=== PATIENT | female | born 1995 | race Caucasian/White ===

== ENCOUNTER 2017-03-02 08:00 | Outpatient (CLI) | payer MEDICAID, OTHER ==
[2017-03-02 13:29] LABS: BASOPHILS % (AUTO) 0.6 %; EOSINOPHILS # (AUTO) 0.1 10^3/uL (0.0-0.7); EOSINOPHILS % (AUTO) 2.8 %; HCT - HEMATOCRIT 37.1 % (37.0-47.0); HGB - HEMOGLOBIN 12.2 g/dL (12.0-16.0); LYMPHOCYTES # (AUTO) 2.1 10^3/uL (1.5-3.5); LYMPHOCYTES % (AUTO) 44.3 %; MEAN CORPUSCULAR HEMOGLOBIN 27.8 pg (27.0-31.0); MEAN CORPUSCULAR HGB CONC 32.8 g/dL (32.0-36.0); MEAN CORPUSCULAR VOLUME 84.7 fL (81.0-99.0); MEAN PLATELET VOLUME 7.7 fL (7.9-10.8); MONOCYTES # (AUTO) 0.3 10^3/uL (0.0-1.0); MONOCYTES % (AUTO) 6.7 %; NEUTROPHILS # (AUTO) 2.1 10^3/uL (1.5-6.6); NEUTROPHILS % (AUTO) 45.6 %; RED BLOOD COUNT 4.38 10^6/uL (4.20-5.40); RED CELL DISTRIBUTION WIDTH 14.1 % (12.0-15.0); UNCORRECTED WHITE BLOOD COUNT 4.7 x10^3/uL; WHITE BLOOD COUNT 4.7 x10^3/uL (4.8-10.8)
[2017-03-02 13:31] LABS: CALCIUM 9.2 mg/dL (8.5-10.3); CARBON DIOXIDE - CO2 27 mmol/L (21-32); CHLORIDE 103 mmol/L (101-111); GLUCOSE 93 mg/dL (70-100); POTASSIUM 3.8 mmol/L (3.5-5.0); SODIUM 138 mmol/L (135-145)
[2017-03-02 13:40] LABS: ALBUMIN/GLOBULIN RATIO 0.9 (1.0-2.2); BILIRUBIN,TOTAL 0.7 mg/dL (0.2-1.0); BUN - BLOOD UREA NITROGEN 13 mg/dL (6-20); CHOLESTEROL 207 mg/dL; CREATININE 0.9 mg/dL (0.4-1.0); GFR - MDRD 80 (>89); HDL CHOLESTEROL 41 mg/dL; IRON 63 ug/dL (28-170); LDL/HDL RATIO 2.8 (<4.4); TOTAL IRON BINDING CAPACITY 367 ug/dL (250-450); TRANSFERRIN 262 mg/dL (192-382); TRIGLYCERIDES 250 mg/dL; VLDL CHOLESTEROL 50 mg/dL
[2017-03-02 13:42] LABS: FERRITIN 28.2 ng/mL (11.0-306.8)
[2017-03-02 13:56] LABS: THYROID STIMULATING HORMONE 1.48 uIU/mL (0.34-5.60)
== END 2017-03-02 08:01 | disposition home or self-care (01) ==
LOC: LAB.N 08:00
PROVIDERS: ATTEND Physician Assistant
DX: R53.83 Other fatigue (principal)
CPT/HCPCS: 36415; 80053; 80061; 82728; 83540; 84443; 84466; 84703; 85025

== ENCOUNTER 2017-12-20 11:37 | Outpatient (CLI) | payer MEDICAID ==
[2017-12-20 11:58] LABS: MEAN CORPUSCULAR HEMOGLOBIN 28.4 pg (27.0-31.0); MEAN CORPUSCULAR VOLUME 83.6 fL (81.0-99.0); MEAN PLATELET VOLUME 6.9 fL (7.9-10.8); RED BLOOD COUNT 4.23 10^6/uL (4.20-5.40); WHITE BLOOD COUNT 5.1 x10^3/uL (4.8-10.8)
[2017-12-20 13:10] LABS: THYROID STIMULATING HORMONE 1.93 uIU/mL (0.34-5.60)
[2017-12-20 13:12] LABS: FREE T4 (FREE THYROXINE) 0.91 ng/dL (0.58-1.64)
== END 2017-12-20 11:38 | disposition home or self-care (01) ==
LOC: LAB 11:37
PROVIDERS: ATTEND Nurse Practitioner Obstetrics & Gynecology
DX: N92.0 Excessive and frequent menstruation with regular cycle (principal)
CPT/HCPCS: 36415; 84439; 84443; 84481

== ENCOUNTER 2017-12-23 17:07 | Outpatient (CLI) | payer MEDICAID ==
--- NOTE | 2017-12-24 14:21 | Ultrasound Report ---
EXAM: PELVIC ULTRASOUND EXAM DATE: 12/23/2017 06:16 PM. CLINICAL HISTORY: EXCESSIVE AND FREQUENT MENSTRUATION WITH REGULAR. COMPARISON: None. TECHNIQUE: Realtime transabdominal pelvic scan performed to identify the uterus and adnexa and as an overview of other pelvic structures, followed by transvaginal scan to provide greater detail of the u terus and adnexa, with static image documentation. FINDINGS: Uterus: 8.3 x 3.2 x 5.0 cm, volume 69.4 cc. Anteverted position. Masses: None. Endometrium: 12.4 mm. Irregular and thickened. Suggestion of a hypoechoic mass with flow invading the endometrium measuring 3.4 x 1.8 x 2.5 cm. Cervix: Unremarkable. Right Ovary: 4.6 x 3.2 x 3.1 cm, volume 23.8 cc. Normal echotexture and blood flow. Left Ovary: 3.9 x 2.0 x 2.2 cm, volume 8.9 cc. Normal echotexture and blood flow. Free Fluid: None. Other: None. IMPRESSION: Irregular thickened endometrial stripe with suggestion of a mass invading the endometrium . Recommend pelvic MRI without and with IV contrast fur further evaluation. [facility] Referring Provider Line: [phone] SITE ID: [id number]
== END 2017-12-23 17:08 | disposition home or self-care (01) ==
LOC: DI 17:07
PROVIDERS: ATTEND Nurse Practitioner Obstetrics & Gynecology
DX: N92.0 Excessive and frequent menstruation with regular cycle (principal)
CPT/HCPCS: 76830; 76856

== ENCOUNTER 2018-01-08 11:57 | Emergency (ER) | payer MEDICAID ==
[2018-01-08 13:53] LABS: BASOPHILS % (AUTO) 0.2 %; EOSINOPHILS # (AUTO) 0.1 10^3/uL (0.0-0.7); HGB - HEMOGLOBIN 12.6 g/dL (12.0-16.0); LYMPHOCYTES # (AUTO) 1.5 10^3/uL (1.5-3.5); LYMPHOCYTES % (AUTO) 21.7 %; MEAN CORPUSCULAR HEMOGLOBIN 28.3 pg (27.0-31.0); MEAN CORPUSCULAR HGB CONC 33.4 g/dL (32.0-36.0); MEAN CORPUSCULAR VOLUME 84.9 fL (81.0-99.0); MEAN PLATELET VOLUME 6.9 fL (7.9-10.8); MONOCYTES # (AUTO) 0.3 10^3/uL (0.0-1.0); MONOCYTES % (AUTO) 3.7 %; NEUTROPHILS # (AUTO) 5.2 10^3/uL (1.5-6.6); NEUTROPHILS % (AUTO) 73.4 %; PLT - PLATELET COUNT 357 10^3/uL (130-450); RED BLOOD COUNT 4.44 10^6/uL (4.20-5.40); RED CELL DISTRIBUTION WIDTH 14.9 % (12.0-15.0)
[2018-01-08 14:06] LABS: ALBUMIN 3.7 g/dL (3.2-5.5); ALBUMIN/GLOBULIN RATIO 0.8 (1.0-2.2); BILIRUBIN,TOTAL 0.8 mg/dL (0.2-1.0); CALCIUM 8.6 mg/dL (8.5-10.3); CREATININE 0.9 mg/dL (0.4-1.0); TOTAL PROTEIN 8.1 g/dL (6.7-8.2)
[2018-01-08 14:13] LABS: HCG UR QUAL NEGATIVE
[2018-01-08] MEDS ORDERED: KETOROLAC 60 MG/2 ML VIAL IM STA (14:29)
--- NOTE | 2018-01-08 14:33 | ED Physician Documentation ---
PD HPI FEMALE - Stated complaint Stated Complaint: ABD PX - Chief complaint Chief Complaint: Abd Pain - History obtained from History obtained from: Patient, Family - History of Present Illness Timing - onset: How many days ago (3) Timing - duration: Days (3) Timing - details: Gradual onset, Still present, Waxing and waning Associated symptoms: Pelvic pain, Vaginal bleeding Contributing factors: Other (has had continuous bleeding for 60 days.) Similar symptoms before: No diagnosis, Has not had sx before Recently seen: Clinic - Additional information Additional information: 22 y/o female with painful menses since age 16 has had vaginal bleeding for the past 2 months. She has had an ultrasound showing a mass in the endometrium and she is scheduled for an MRI. Over the past 3 days she has had a marked increase in her pain. Review of Systems Constitutional: denies: Fever, Chills Eyes: denies: Loss of vision, Decreased vision, Photophobia Ears: denies: Ear pain Nose: denies: Rhinorrhea / runny nose, Congestion Throat: denies: Sore throat Cardiac: denies: Chest pain / pressure, Palpitations Respiratory: denies: Dyspnea, Cough GI: reports: Nausea, Vomiting. denies: Abdominal Pain : reports: Vaginal bleeding, Irregular menses. denies: Dysuria, Frequency, Hesitancy, Discharge Skin: denies: Rash, Laceration (s) Musculoskeletal: denies: Neck pain, Back pain, Extremity pain Neurologic: denies: Generalized weakness, Focal weakness, Numbness PD PAST MEDICAL HISTORY - Past Medical History Past Medical History: Yes Cardiovascular: None Respiratory: None Neuro: None : Other Musculoskeletal: Chronic back pain Other Past Medical History: Stage 3 KD - Past Surgical History Past Surgical History: No - Present Medications Home Medications: Ambulatory Orders Medication Instructions Recorded Confirmed Citalopram [CeleXA] 01/08/18 HYDROcod/ACETAM 5/325 [[place] 5/325] 1 - 2 ea PO Q6H PRN #15 tablet 01/08/18 Progesterone,Micronized 100 mg PO DAILY 01/08/18 01/08/18 [Progesterone] - Allergies Allergies/Adverse Reactions: Allergies Allergy/AdvReac Type Severity Reaction Status Date / Time No Known Drug Allergies Allergy Verified 03/14/16 14:50 - Social History Does the pt smoke?: No Smoking Status: Never smoker Does the pt drink ETOH?: No Does the pt have substance abuse?: Yes Substance Use and Type: Marijuana - Immunizations Immunizations are current?: Yes PD ED PE NORMAL - Vitals Vital signs reviewed: Yes (hypertension) - General General: Alert and oriented X 3, No acute distress, Well developed/nourished - HEENT HEENT: Atraumatic, PERRL, EOMI - Neck Neck: Supple, no meningeal sign, No bony TTP - Cardiac Cardiac: RRR, No murmur - Respiratory Respiratory: No respiratory distress, Clear bilaterally - Abdomen Abdomen: Soft, Other (suprapubic pain to palpation. ) - Back Back: No CVA TTP, No spinal TTP - Derm Derm: Normal color, Warm and dry, No rash - Extremities Extremities: No deformity, No edema - Neuro Neuro: Alert and oriented X 3, No motor deficit, No sensory deficit, Normal speech Eye Opening: Spontaneous Motor: Obeys Commands Verbal: Oriented GCS Score: 15 - Psych Psych: Normal mood, Normal affect Results - Vitals Vitals: Vital Signs - 24 hr 01/08/18 01/08/18 12:14 15:55 Temperature 36.3 C L 36.4 C L Heart Rate 85 78 Respiratory 16 16 Rate Blood Pressure 130/99 H 119/78 O2 Saturation 99 100 Oxygen O2 Source Room air - Labs Labs: Laboratory Tests 01/08/18 01/08/18 01/08/18 13:50 13:50 13:50 WBC 7.0 RBC 4.44 Hgb 12.6 Hct 37.7 MCV 84.9 MCH 28.3 MCHC 33.4 RDW 14.9 Plt Count 357 MPV 6.9 L Neut # 5.2 Lymph # 1.5 Gem # 0.3 Eos # 0.1 Baso # 0.0 Absolute Nucleated RBC 0.00 Nucleated RBC % 0.0 Sodium 136 Potassium 4.0 Chloride 103 Carbon Dioxide 25 Anion Gap 8.0 BUN 8 Creatinine 0.9 Estimated GFR (MDRD) 79 L Glucose 86 Calcium 8.6 Total Bilirubin 0.8 AST 27 ALT 23 Alkaline Phosphatase 58 Total Protein 8.1 Albumin 3.7 Globulin 4.4 H Albumin/Globulin Ratio 0.8 L Lipase 19 L Urine Color Urine Clarity Urine pH Ur Specific [place] Urine Protein Urine Glucose (UA) Urine Ketones Urine Occult Blood Urine Nitrite Urine Bilirubin Urine Urobilinogen Ur Leukocyte Esterase Ur Microscopic Review Urine Culture Comments Urine HCG, Qual Blood Type B POSITIVE 01/08/18 01/08/18 13:50 13:50 WBC RBC Hgb Hct MCV MCH MCHC RDW Plt Count MPV Neut # Lymph # Gem # Eos # Baso # Absolute Nucleated RBC Nucleated RBC % Sodium Potassium Chloride Carbon Dioxide Anion Gap BUN Creatinine Estimated GFR (MDRD) Glucose Calcium Total Bilirubin AST ALT Alkaline Phosphatase Total Protein Albumin Globulin Albumin/Globulin Ratio Lipase Urine Color YELLOW Urine Clarity CLEAR Urine pH 6.5 Ur Specific [place] 1.020 1.025 Urine Protein NEGATIVE Urine Glucose (UA) NEGATIVE Urine Ketones NEGATIVE Urine Occult Blood TRACE-INTA Urine Nitrite NEGATIVE Urine Bilirubin NEGATIVE Urine Urobilinogen 0.2 (NORMAL) Ur Leukocyte Esterase NEGATIVE Ur Microscopic Review NOT INDICATED Urine Culture Comments NOT INDICATED Urine HCG, Qual NEGATIVE Blood Type PD MEDICAL DECISION MAKING - ED course Complexity details: reviewed old records, reviewed results, re-evaluated patient , considered differential, d/w patient, d/w family ED course: 22-year-old female with a long history of menstrual pain has developed excessive vaginal bleeding for the past 60 days and she does have a presumed endometrial mass that is to be further investigated with MRI. Today she is having a pain crisis and her bleeding is controlled and her blood counts were normal. She is administered ketorolac without much improvement her pain is subsequently administered hydrocodone. I discussed with her her follow-up with [facility] and possibility of endometriosis and at this point we are offering her pain control. I did not feel that further imaging procedures would be beneficial today. Departure - Departure Disposition: 01 Home, Self Care Clinical Impression: Pelvic pain Condition: Stable Instructions: ED Pelvic Pain [facility] Follow-Up: Frank Deras PA-C [Primary Care Provider] - [facility] [Provider Group] Prescriptions: HYDROcod/ACETAM 5/325 [[place] 5/325] 1 - 2 ea PO Q6H PRN #15 tablet PRN Reason: Pain
[2018-01-08 15:37] LABS: BILIRUBIN,URINE NEGATIVE (NEGATIVE); GLUCOSE, URINE (UA) NEGATIVE (NEGATIVE); KETONES,URINE (UA) NEGATIVE (NEGATIVE); LEUKOCYTE ESTERASE, URINE NEGATIVE (NEGATIVE); NITRITE,URINE NEGATIVE (NEGATIVE); OCCULT BLOOD,URINE TRACE-INTA (NEGATIVE); PH,URINE 6.5 PH (5.0-7.5); PROTEIN,URINE NEGATIVE (NEGATIVE); UROBILINOGEN,URINE 0.2 (NORMAL) E.U./dL (NORMAL)
[2018-01-08 15:38] LABS: CLARITY,URINE CLEAR (CLEAR)
[2018-01-08] MEDS ORDERED: HYDROcod/ACETAM 5/325 MG TABLET PO STA (17:08)
[2018-01-08 17:28] VITALS: BP 138/59
== END 2018-01-08 17:28 | disposition home or self-care (01) ==
LOC: ED 11:57
DX: R10.2 Pelvic and perineal pain (principal)
CPT/HCPCS: 36415; 80053; 81003; 81025; 83690; 85025; 86900; 86901; 96372; 99283; A9270; 81001; 87086

== ENCOUNTER 2019-01-10 01:27 | Outpatient (CLI) | payer MEDICAID | END 2019-01-10 23:59 | disposition home or self-care (01) | LOC: LAB.R 01:27 | PROVIDERS: ATTEND Registered Nurse | DX: N92.1 Excessive and frequent menstruation with irregular cycle (principal) | CPT/HCPCS: 36415; 81599; 82627; 82947; 83001; 83002; 83036; 84436; 84439; 84443; 85025; 87480; 87491; 87510; 87591; 87660 ==

== ENCOUNTER 2019-01-10 13:17 | Outpatient (CLI) | payer MEDICAID ==
[2019-01-10 18:56] LABS: BASOPHILS % (AUTO) 0.4 %; EOSINOPHILS # (AUTO) 0.2 10^3/uL (0.0-0.7); EOSINOPHILS % (AUTO) 3.3 %; HGB - HEMOGLOBIN 12.1 g/dL (12.0-16.0); LYMPHOCYTES # (AUTO) 1.7 10^3/uL (1.5-3.5); LYMPHOCYTES % (AUTO) 36.5 %; MEAN CORPUSCULAR HEMOGLOBIN 28.6 pg (27.0-31.0); MEAN CORPUSCULAR HGB CONC 32.8 g/dL (32.0-36.0); MEAN CORPUSCULAR VOLUME 87.2 fL (81.0-99.0); MEAN PLATELET VOLUME 8.2 fL (7.9-10.8); MONOCYTES # (AUTO) 0.2 10^3/uL (0.0-1.0); MONOCYTES % (AUTO) 4.4 %; NEUTROPHILS # (AUTO) 2.5 10^3/uL (1.5-6.6); NEUTROPHILS % (AUTO) 55.4 %; PLT - PLATELET COUNT 317 10^3/uL (130-450); RED BLOOD COUNT 4.24 10^6/uL (4.20-5.40); RED CELL DISTRIBUTION WIDTH 14.5 % (12.0-15.0); WHITE BLOOD COUNT 4.5 x10^3/uL (4.8-10.8)
[2019-01-10 19:25] LABS: T4 (THYROXINE) 8.62 ug/dL (6.09-12.23)
[2019-01-10 19:27] LABS: HB2 TOTAL 13.1 g/dL; HEMOGLOBIN A1C 0.46 g/dL; HEMOGLOBIN A1C % 5.4 % (4.6-6.2)
[2019-01-10 19:29] LABS: THYROID STIMULATING HORMONE 0.82 uIU/mL (0.34-5.60)
[2019-01-10 19:34] LABS: FREE T4 (FREE THYROXINE) 0.91 ng/dL (0.58-1.64)
[2019-01-10 19:57] LABS: FOLLICLE STIMULATING HORMONE 3.22 mIU/mL
[2019-01-10 19:58] LABS: LUTEINIZING HORMONE 14.2 mIU/mL
== END 2019-01-10 23:59 | disposition home or self-care (01) ==
LOC: LAB.N 13:17
PROVIDERS: ATTEND Registered Nurse
DX: N92.1 Excessive and frequent menstruation with irregular cycle (principal)
CPT/HCPCS: 36415; 81599; 82627; 82947; 83001; 83002; 83036; 84436; 84439; 84443; 85025

== ENCOUNTER 2019-02-01 14:55 | Outpatient (CLI) | payer MEDICAID ==
--- NOTE | 2019-02-01 21:46 | Ultrasound Report ---
Reason: METRORRHAGIA Procedure Date: 02/01/2019 Accession Number: [id number] / [id number] Procedure: US - Pelvic w/Transvaginal CPT Code: FULL RESULT: EXAM: PELVIC ULTRASOUND EXAM DATE: 02/01/2019 03:53 PM. CLINICAL HISTORY: METRORRHAGIA. COMPARISON: None. TECHNIQUE: Realtime transabdominal pelvic scan performed to identify the uterus and adnexa and as an overview of other pelvic structures, followed by transvaginal scan to provide greater detail of the uterus and adnexa, with static image documentation. FINDINGS: Uterus: 8.8 x 3.7 x 4.6 cm, volume 78 cc. Anteverted position. Normal overall size and echotexture. Masses: None. Endometrium: 2 mm. No focal endometrial abnormalities. Cervix: Unremarkable. Right Ovary: 3.4 x 2.4 x 3.4 cm, volume 14.5 cc. Normal echotexture and blood flow. Left Ovary: 3.4 x 1.9 x 2.2 cm, volume 7.4 cc. Normal echotexture and blood flow. Free Fluid: None. Other: None. IMPRESSION: No acute sonographic abnormalities. [facility]
== END 2019-02-01 14:56 | disposition home or self-care (01) ==
LOC: DI 14:55
PROVIDERS: ATTEND Registered Nurse
DX: N92.1 Excessive and frequent menstruation with irregular cycle (principal)
CPT/HCPCS: 76830; 76856

== ENCOUNTER 2019-02-08 10:53 | Outpatient (CLI) | payer MEDICAID ==
--- NOTE | 2019-02-08 14:32 | XRAY Report ---
Reason: KNEE PAIN Procedure Date: 02/08/2019 Accession Number: [id number] / [id number] Procedure: WCP - Knee 3 View LT CPT Code: FULL RESULT: EXAM: LEFT KNEE RADIOGRAPHY EXAM DATE: 02/08/2019 11:29 AM. CLINICAL HISTORY: Knee pain. COMPARISON: None. TECHNIQUE: 3 views. FINDINGS: Bones: Normal. No fractures or bone lesions. Joints: There is a joint effusion. No subluxation. Soft Tissues: Normal. No soft tissue swelling. IMPRESSION: Joint effusion without significant degenerative changes or acute fracture/dislocation. [facility]
== END 2019-02-08 10:54 | disposition home or self-care (01) ==
LOC: DI.WCP 10:53
PROVIDERS: ATTEND Family Medicine
DX: M25.562 Pain in left knee (principal); M25.462 Effusion, left knee

== ENCOUNTER 2019-03-02 07:19 | Outpatient (CLI) | payer MEDICAID ==
--- NOTE | 2019-03-02 14:04 | MRI Report ---
Reason: PAIN L KNEE > 6 WEEKS Procedure Date: 03/02/2019 Accession Number: [id number] / [id number] Procedure: MRI - Knee LT W/O CPT Code: FULL RESULT: EXAM: LEFT KNEE MRI WITHOUT CONTRAST EXAM DATE: 03/02/2019 08:15 AM. CLINICAL HISTORY: Pain left knee 6 weeks. COMPARISON: Radiographs 02/08/2019. TECHNIQUE: Multiplanar, multisequence T1-weighted and fluid-sensitive sequences of the knee without contrast. Other: None. FINDINGS: Bones: No fracture or bone lesion. Mild reactive edema and cysts at the lateral tibial spine. Moderate reactive edema lateral patellar facet. Moderate lateral patellar subluxation. Shallow trochlear groove with a flattened appearance. Tibial tubercle to trochlear groove distance increased measuring 2.5 cm. Lateral trochlear inclination measures 20 degrees. Small medial trochlear facet with facet ratio of 38%. Articular Cartilage: Deep partial-thickness irregularity/fissuring posterior aspect lateral tibial plateau. Full-thickness tears at the mid portions lateral patellar facet and median ridge. Medial Meniscus: The medial meniscus is intact. Lateral Meniscus: The lateral meniscus is intact. Cruciate Ligaments: The anterior and posterior cruciate ligaments are intact. Collateral Ligaments: The medial collateral and lateral collateral ligamentous structures are intact. Tendons: Mild quadriceps and patellar tendinopathy. Popliteus and semimembranosus tendons unremarkable. Musculature: No edema or fatty atrophy. Other: Moderate joint effusion. No popliteal cyst. No loose bodies. Chronic strain medial retinaculum. No discrete disruption. Mild subcutaneous edema anteriorly. Mild edema in the superolateral aspect of Hoffa's fat pad and lateral prefemoral fatpad. IMPRESSION: 1. Moderate lateral patellar subluxation with shallow trochlear groove, small medial trochlear facet, and increased tibial tubercle to trochlear groove distance. 2. Full-thickness cartilage tears at the patella with reactive edema. 3. Reactive edema versus impingement and superior lateral aspect Hoffa's fatpad and lateral prefemoral fatpad. 4. Moderate joint effusion. 5. Deep partial-thickness cartilage irregularity/fissuring lateral tibial plateau. [facility]
== END 2019-03-02 07:20 | disposition home or self-care (01) ==
LOC: DI 07:19
PROVIDERS: ATTEND Orthopaedic Surgery
DX: S83.012A Lateral subluxation of left patella, initial encounter (principal); M25.462 Effusion, left knee

== ENCOUNTER → 2022-08-13 | Outpatient (CLI) | payer MEDICAID | END | disposition short-term general hospital (02) | LOC: EMS 18:31 | DX: O60.03 Preterm labor without delivery, third trimester (principal); Z3A.37 37 weeks gestation of pregnancy | CPT/HCPCS: A0425; A0429; A0999 ==